=== PATIENT | male | born 1990 | race Hispanic/Latino ===

== ENCOUNTER 2016-08-25 03:54 | Emergency (ER) | payer SELFPAY ==
[2016-08-25 04:03] VITALS: BP 136/74; PULSE 92; RESP 16; TEMP 98.2; O2SAT 100
--- NOTE | 2016-08-25 04:47 | ED PDOC ---
HPI: Psych/Substance Abuse Time Seen by Provider: 08/25/16 03:57 Chief Complaint (Nursing): Alcohol Ingestion Chief Complaint (Provider): ETOH intoxication History Per: Patient History/Exam Limitations: intoxication Onset/Duration Of Symptoms: Hrs Current Symptoms Are (Timing): Still Present Modifying Factor(s): Alcohol Additional Complaint(s): The patient is a 25yo male, brought to the ED by EMS s/p finding the pt publicly intoxicated. Patient admits to drinking today and offers no medical complaints. Due to patient's intoxicated state, a full HPI is limited. Past Medical History Reviewed: Historical Data, Nursing Documentation, Vital Signs Vital Signs: Last Vital Signs Temp 98.2 F 08/25/16 04:01 Pulse 92 H 08/25/16 04:01 Resp 16 08/25/16 04:01 BP 136/74 08/25/16 04:01 Pulse Ox 100 08/25/16 04:01 - Medical History PMH: No Chronic Diseases - Surgical History Surgical History: No Surg Hx - Family History Family History: States: No Known Family Hx - Allergies Allergies/Adverse Reactions: Allergies Allergy/AdvReac Type Severity Reaction Status Date / Time escitalopram [From Lexapro] Allergy RASH Verified 08/25/16 04:03 Review of Systems ROS Statement: Except As Marked, All Systems Reviewed And Found Negative Review Of Systems: ROS cannot be obtained secondary to pt's inabilty to answer questions. (limited due to pt's intoxicated state) Psych: Positive for: Other (acohol intoxication) Physical Exam - Reviewed Nursing Documentation Reviewed: Yes Vital Signs Reviewed: Yes - Physical Exam Appears: Positive for: Well, Non-toxic, No Acute Distress Head Exam: Positive for: ATRAUMATIC, NORMAL INSPECTION, NORMOCEPHALIC Skin: Positive for: Normal Color, Warm, DRY Eye Exam: Positive for: Normal appearance, EOMI, PERRL Neck: Positive for: Normal, Supple Cardiovascular/Chest: Positive for: Regular Rate, Rhythm Respiratory: Positive for: Normal Breath Sounds. Negative for: Respiratory Distress Extremity: Positive for: Normal ROM. Negative for: Deformity, Swelling Neurologic/Psych: Positive for: Alert (pt asleep but easily arousable), Oriented - ECG O2 Sat by Pulse Oximetry: 100 (RA) Pulse Ox Interpretation: Normal Medical Decision Making Medical Decision Making: Time: 409 Impression: Alcohol intoxication Plan: * Alcohol serum * * Pt is alert and awake. Awake and alert ambulatory with steady gait. * Scribe Attestation: Documented by Jihan Luna acting as a scribe for Ronal Schumacher MD. Provider Attestation: All medical record entries made by the Scribe were at my direction and personally dictated by me. I have reviewed the chart and agree that the record accurately reflects my personal performance of the history, physical exam, medical decision making, and the department course for this patient. I have also personally directed, reviewed, and agree with the discharge instructions and disposition. Disposition - Clinical Impression Clinical Impression: Alcohol intoxication - Patient ED Disposition Is Patient to be Admitted: No Doctor Will See Patient In The: Office Counseled Patient/Family Regarding: Studies Performed, Diagnosis, Need For Followup - Disposition Referrals: [facility] [Outside] Disposition: Routine/Home Disposition Time: 06:32 Condition: GOOD Additional Instructions: Follow up with your PCP in 2-3 days. Instructions: Alcohol Intoxication (DC)
== END 2016-08-25 06:36 | disposition home or self-care (01) ==
LOC: H.ER 03:54
DX: F10.129 Alcohol abuse with intoxication, unspecified (principal)
CPT/HCPCS: 99282; G0480

== ENCOUNTER 2016-08-26 02:13 | Emergency (ER) | payer OTHER ==
[2016-08-26 02:21] VITALS: BP 111/69; PULSE 79; RESP 16; TEMP 98; O2SAT 98
--- NOTE | 2016-08-26 02:33 | ED PDOC ---
HPI: Psych/Substance Abuse Time Seen by Provider: 08/26/16 02:21 Chief Complaint (Nursing): Alcohol Ingestion Chief Complaint (Provider): ETOH History Per: Patient Additional Complaint(s): The patient is a 25yo male, brought to the ED by EMS s/p finding the pt publicly intoxicated. Patient admits to drinking today and offers no medical complaints. Pt speaking in clear and full sentences, ambulates into ED room with steady gait. Past Medical History Reviewed: Historical Data, Nursing Documentation, Vital Signs Vital Signs: Last Vital Signs Temp 98 F 08/26/16 02:19 Pulse 79 08/26/16 02:19 Resp 16 08/26/16 02:19 BP 111/69 08/26/16 02:19 Pulse Ox 98 08/26/16 02:19 - Medical History PMH: No Chronic Diseases - Surgical History Surgical History: No Surg Hx - Family History Family History: States: No Known Family Hx - Living Arrangements Living Arrangements: With Friends/Others - Social History Current smoker - smoking cessation education provided: No Alcohol: Social - Allergies Allergies/Adverse Reactions: Allergies Allergy/AdvReac Type Severity Reaction Status Date / Time escitalopram [From Lexapro] Allergy RASH Verified 08/26/16 02:18 Review of Systems ROS Statement: Except As Marked, All Systems Reviewed And Found Negative Physical Exam - Reviewed Nursing Documentation Reviewed: Yes Vital Signs Reviewed: Yes - Physical Exam Appears: Positive for: Well, Non-toxic, No Acute Distress Head Exam: Positive for: ATRAUMATIC, NORMAL INSPECTION, NORMOCEPHALIC Skin: Positive for: Normal Color, Warm, DRY Eye Exam: Positive for: EOMI, Normal appearance, PERRL ENT: Positive for: Normal ENT Inspection Neck: Positive for: Normal, Painless ROM Cardiovascular/Chest: Positive for: Regular Rate, Rhythm Respiratory: Positive for: CNT, Normal Breath Sounds Gastrointestinal/Abdominal: Positive for: Normal Exam, Bowel Sounds, Soft Back: Positive for: Normal Inspection Extremity: Positive for: Normal ROM Neurologic/Psych: Positive for: Alert, Oriented - ECG O2 Sat by Pulse Oximetry: 98 Medical Decision Making Medical Decision Making: No medical intervention needed at this time, stable for discharge Disposition - Clinical Impression Clinical Impression: Alcohol ingestion - Patient ED Disposition Is Patient to be Admitted: No - Disposition Disposition: Routine/Home Disposition Time: 02:33 Condition: STABLE Instructions: Alcohol Intoxication (ED)
== END 2016-08-26 02:58 | disposition home or self-care (01) ==
LOC: H.ER 02:13
DX: F10.129 Alcohol abuse with intoxication, unspecified (principal)

== ENCOUNTER 2016-10-25 01:43 | Emergency (ER) | payer OTHER ==
[2016-10-25 01:50] VITALS: BP 131/81; PULSE 99; RESP 16; TEMP 98.7; O2SAT 100
--- NOTE | 2016-10-25 02:17 | ED PDOC ---
HPI: Psych/Substance Abuse Time Seen by Provider: 10/25/16 01:52 Chief Complaint (Nursing): Alcohol Ingestion Chief Complaint (Provider): etoh History Per: Patient, EMS Additional History Per: Patient, EMS Additional Complaint(s): 26 y/o male brought in by EMS for acute alcohol intoxication. Patient ambulates in to ED exam room with steady gait. Speech clear. Admits to drinking. Denies acute medical or psychiatric complaints. Past Medical History Reviewed: Historical Data, Nursing Documentation, Vital Signs Vital Signs: Last Vital Signs Temp 98.7 F 10/25/16 01:47 Pulse 99 H 10/25/16 01:47 Resp 16 10/25/16 01:47 BP 131/81 10/25/16 01:47 Pulse Ox 100 10/25/16 01:47 - Medical History PMH: No Chronic Diseases - Surgical History Surgical History: No Surg Hx - Family History Family History: States: Unknown Family Hx - Allergies Allergies/Adverse Reactions: Allergies Allergy/AdvReac Type Severity Reaction Status Date / Time escitalopram [From Lexapro] Allergy RASH Verified 08/26/16 02:18 Review of Systems ROS Statement: Except As Marked, All Systems Reviewed And Found Negative Physical Exam - Reviewed Nursing Documentation Reviewed: Yes Vital Signs Reviewed: Yes - Physical Exam Appears: Positive for: Well, Non-toxic, No Acute Distress Head Exam: Positive for: ATRAUMATIC, NORMAL INSPECTION Skin: Positive for: Normal Color Eye Exam: Positive for: Normal appearance ENT: Positive for: Normal ENT Inspection Cardiovascular/Chest: Positive for: Regular Rate, Rhythm Respiratory: Positive for: Normal Breath Sounds Gastrointestinal/Abdominal: Positive for: Normal Exam Back: Positive for: Normal Inspection Extremity: Positive for: Normal ROM Neurologic/Psych: Positive for: Alert, Oriented - ECG O2 Sat by Pulse Oximetry: 100 - Progress ED Course And Treament: accucheck Patient awake, alert, oriented x3; ambulating steady gait. No medical intervention needed at this time. Stable for discharge. Disposition - Clinical Impression Clinical Impression: Alcohol intoxication - Patient ED Disposition Is Patient to be Admitted: No Counseled Patient/Family Regarding: Studies Performed, Diagnosis, Need For Followup - Disposition Disposition: Routine/Home Disposition Time: 02:16 Condition: STABLE Instructions: Alcohol Intoxication (ED)
== END 2016-10-25 02:25 | disposition home or self-care (01) ==
LOC: H.ER 01:43
DX: F10.129 Alcohol abuse with intoxication, unspecified (principal)